=== PATIENT | female | born 1995 ===

== ENCOUNTER 2020-12-20 12:53 | Emergency (ER) | payer OTHER ==
[2020-12-20 13:29] LABS: Urine Blood 3+ (Negative); Urine Glucose Negative (Negative); Urine Protein 1+ (Negative); Urine Specific Gravity 1.015 (1.005-1.030)
[2020-12-20 13:46] LABS: Urine Bacteria <20 /HPF (<20); Urine RBC >50 /HPF (NONE SEEN)
[2020-12-20 13:46] LABS: Urine Specific Gravity/Preg 1.015 (1.005-1.030)
[2020-12-20 13:49] LABS: Absolute Lymphocytes (CBC) 2.5 K/uL (0.7-4.9); Basophils % 0.6 % (0-1.3); Hematocrit 37.4 % (36.0-45.0); Lymphocytes % 23.2 % (15.3-44.8); MPV 8.9 fL (7.6-11.3); RBC Red Blood Cell Count 4.62 M/uL (3.86-4.86)
[2020-12-20 14:10] LABS: BUN Blood Urea Nitrogen 7 mg/dL (7-18); Bicarbonate 27 mmol/L (21-32); Glucose Level 90 mg/dL (74-106); HCG, Quantitative 159 mIU/mL (1-3); Potassium 3.6 mmol/L (3.5-5.1); Sodium Level 138 mmol/L (136-145)
--- NOTE | 2020-12-20 15:33 | RAD REPORT ---
EXAM DESCRIPTION: US - Transvaginal OB - 12/20/2020 3:00 pm CLINICAL HISTORY: VAGINAL BLEEDING, , beta HCG 159 COMPARISON: Abdomen Pelvis W Contrast dated 03/10/2017No comparisonsNo comparisons FINDINGS: Uterus is normal size. No myometrial mass lesion identifiable. Both ovaries are well visua lized with normal blood flow seen in the stroma on Doppler assessment. No adnexal mass. No blood or f luid in the cul de sac. Endometrium is 7 mm in thickness. No gestational sac or sac remnant identifiable. No blood, fluid or other abnormality of the endometrial canal. IMPRESSION: No intrauterine gestational sac or sac remnant is identifiable at this time. No adnexal abnormality to suspect ectopic . Follow-up sonography could be performed if serial beta HCG studies show ongoing and the pat ient remains symptomatic.
--- NOTE | 2020-12-20 16:14 | ER ---
Nurse's Notes [facility] Name: Vanessa Cruz Age: 25 yrs Sex: Female : 1995 Arrival Date: 12/20/2020 Time: 13:00 Bed 19 Private MD: Diagnosis: Threatened Presentation: 12/20 13:06 Chief complaint: Patient states: 8 weeks . Having vaginal bleeding since this ca1 morning, moderate, bright red. Reports lower abdominal and lower back pains. Coronavirus screen: Client denies travel out of the [place] in the last 14 days. At this time, the client does not indicate any symptoms associated with coronavirus-19. Ebola Screen: Patient negative for fever greater than or equal to 101.5 degrees Fahrenheit, and additional compatible Ebola Virus Disease symptoms Patient denies exposure to infectious person. Patient denies travel to an Ebola-affected area in the 21 days before illness onset. No symptoms or risks identified at this time. Initial Sepsis Screen: Does the patient meet any 2 criteria? No. Patient's initial sepsis screen is negative. Does the patient have a suspected source of infection? No. Patient's initial sepsis screen is negative. Risk Assessment: Do you want to hurt yourself or someone else? Patient reports no desire to harm self or others. Onset of symptoms was December 20, 2020. 13:06 Method Of Arrival: Ambulatory ca1 13:06 Acuity: ANN 3 ca1 DIRECTOR RELIGIOUS EDUCATION: 13:08 2, Premature 1, Living 1, LMP 10/21/2020 ca1 13:15 2, Full Term 1, Living 1 pm1 Historical: - Allergies: 13:08 No Known Allergies; ca1 - Home Meds: 13:08 None [Active]; ca1 - PMHx: 13:08 None; ca1 - PSHx: 13:08 None; ca1 - Immunization history:: Client reports receiving the 2nd dose of the Covid vaccine, Client reports receiving the 1st dose of the Covid vaccine, Flu vaccine is not up to date. - Social history:: Smoking status: Patient denies any tobacco usage or history of. Screenin:15 Abuse screen: Denies threats or abuse. Nutritional screening: No deficits noted. rb3 Tuberculosis screening: No symptoms or risk factors identified. Fall Risk None identified. Assessment: 13:15 General: Appears in no apparent distress. comfortable, Behavior is calm, cooperative. rb3 Pain: Complains of pain in right low back and left low back and suprapubic area Pain currently is 5 out of 10 on a pain scale. Neuro: Level of Consciousness is awake, alert, obeys commands, Oriented to person, place, time, situation. Cardiovascular: Patient's skin is warm and dry. Respiratory: Airway is patent Respiratory effort is even, unlabored, Respiratory pattern is regular, symmetrical. GI: No signs and/or symptoms were reported involving the gastrointestinal system. : Reports vaginal bleeding that is bright red, moderate flow, since this morning Has gone through three pads today. 14:09 Reassessment: Pt. was crying when I walked into the room. She is feeling anxious due to rb3 the vaginal bleeding. 15:00 Reassessment: Patient appears in no apparent distress at this time. Patient and/or rb3 family updated on plan of care and expected duration. Pain level reassessed. Patient is alert, oriented x 3, equal unlabored respirations, skin warm/dry/pink. Pt is no longer crying. 15:44 Reassessment: Patient appears in no apparent distress at this time. No changes from rb3 previously documented assessment. 16:26 Reassessment: Patient appears in no apparent distress at this time. Patient and/or rb3 family updated on plan of care and expected duration. Pain level reassessed. Patient is alert, oriented x 3, equal unlabored respirations, skin warm/dry/pink. Vital Signs: 13:06 BP 130 / 85; Pulse 86; Resp 16 S; Temp 98.4; Pulse Ox 100% on R/A; Weight 93.89 kg (R); ca1 Height 5 ft. 3 in. (160.02 cm) (R); Pain 5/10; 13:48 BP 119 / 91; Pulse 84; Resp 16; Pulse Ox 100% on R/A; mh5 14:40 BP 120 / 88; Pulse 93; Resp 15; Pulse Ox 100% ; rb3 15:30 BP 124 / 77; Pulse 91; Resp 16; Pulse Ox 100% ; rb3 16:14 BP 115 / 78; Pulse 98; Resp 17; Pulse Ox 99% ; rb3 13:06 Body Mass Index 36.67 (93.89 kg, 160.02 cm) ca1 ED Course: 13:00 Patient arrived in ED. bp1 13:08 Triage completed. ca1 13:08 Arm band placed on right wrist. ca1 13:09 Anisha Martines, RN is Primary Nurse. rb3 13:10 Nahid Marin NP is PHCP. pm1 13:10 Corby Cardenas MD is Attending Physician. pm1 13:29 Urine collected: clean catch specimen, blood tinged. [facility] 13:44 Urine --Ancillary (enter results) Sent. 5 13:44 ABO/RH typing Sent. 5 13:44 Basic Metabolic Panel Sent. 5 13:44 Abo/rh Typing Sent. 5 13:44 Basic Metabolic Panel Sent. 5 13:44 CBC with Diff Sent. 5 13:45 Patient has correct armband on for positive identification. Placed in gown. Bed in low mh5 position. Call light in reach. Side rails up X 1. Warm blanket given. Pulse ox on. NIBP on. 13:45 Quantitative Hcg Sent. 5 13:46 Initial lab(s) drawn, by nj, sent to lab. Inserted saline lock: 22 gauge in right 5 antecubital area, using aseptic technique. Blood collected. 15:00 US Transvaginal Ob In Process Unspecified. EDMS 16:26 No provider procedures requiring assistance completed. IV discontinued, intact, rb3 bleeding controlled, No redness/swelling at site. Pressure dressing applied. Administered Medications: No medications were administered Outcome: 16:13 Discharge ordered by . pm1 16:26 Discharged to home ambulatory. rb3 16:26 Condition: stable 16:26 Discharge instructions given to patient, Instructed on discharge instructions, follow up and referral plans. Demonstrated understanding of instructions, follow-up care, Prescriptions given X none 16:31 Patient left the ED. rb3 Signatures: Dispatcher [employer] EDMS Nahid Marin, HANK VOLTAGE INSPECTOR pm1 Jailyn Lewis 5 Marcela Robledo RN RN [id number] Cindy Voss RN RN ca1 Nithya Castillo bp1 Anisha Martines, RN RN rb3
--- NOTE | 2020-12-20 16:14 | EDPHYS ---
Physician Documentation [facility] Name: Vanessa Cruz Age: 25 yrs Sex: Female : 1995 Arrival Date: 12/20/2020 Time: 13:00 Bed 19 Private MD: ED Physician Corby Cardenas HPI: 12/20 13:15 This 25 yrs old Female presents to ER via Ambulatory with complaints of Vaginal pm1 Bleeding. 13:15 The patient presents with vaginal bleeding that is moderate, with no clots. Onset: The pm1 symptoms/episode began/occurred today. Modifying factors: The symptoms are alleviated by nothing, the symptoms are aggravated by nothing. Associated signs and symptoms: Pertinent positives: cramping, lower back and lower abdomen, Pertinent negatives: dysuria, fever, nausea, vomiting. Severity of symptoms: in the emergency department the symptoms are unchanged. The patient is sexually active. The patient's method of control includes nothing. The patient has not experienced similar symptoms in the past. The patient has not recently seen a physician, has an appointment scheduled, on Tuesday with her ob. TELECOMMUNICATIONS SPECIALIST: 13:08 2, Premature 1, Living 1, LMP 10/21/2020 ca1 13:15 2, Full Term 1, Living 1 pm1 Historical: - Allergies: 13:08 No Known Allergies; ca1 - Home Meds: 13:08 None [Active]; ca1 - PMHx: 13:08 None; ca1 - PSHx: 13:08 None; ca1 - Immunization history:: Client reports receiving the 2nd dose of the Covid vaccine, Client reports receiving the 1st dose of the Covid vaccine, Flu vaccine is not up to date. - Social history:: Smoking status: Patient denies any tobacco usage or history of. ROS: 13:15 Positive for vaginal bleeding, Negative for urinary symptoms. pm1 13:15 Constitutional: Negative for fever, chills, and weight loss, Cardiovascular: Negative for chest pain, palpitations, and edema, Respiratory: Negative for shortness of breath, cough, wheezing, and pleuritic chest pain. 13:15 MS/Extremity: Negative for injury and deformity, Skin: Negative for injury, rash, and discoloration. 13:15 Abdomen/GI: Positive for abdominal cramps, of the suprapubic area. 13:15 Back: Positive for of the left low back and right low back, cramping. 13:15 All other systems are negative. Exam: 13:15 Constitutional: This is a well developed, well nourished patient who is awake, alert, pm1 and in no acute distress. Head/Face: Normocephalic, atraumatic. 13:15 Skin: Warm, dry with normal turgor. Normal color with no rashes, no lesions, and no evidence of cellulitis. MS/ Extremity: Pulses equal, no cyanosis. Neurovascular intact. Full, normal range of motion. 13:15 Eyes: Exam is negative for acute changes, Periorbital structures: appear normal, Extraocular movements: no acute changes, Conjunctiva: no acute changes, no injection, Sclera: no acute changes, icterus, is not appreciated. 13:15 Cardiovascular: Exam negative for acute changes, Rate: normal, Rhythm: regular, Pulses: no pulse deficits are appreciated. 13:15 Respiratory: Exam negative for acute changes, respiratory distress, shortness of breath. 13:15 Abdomen/GI: Inspection: obese Palpation: abdomen is soft and non-tender, in all quadrants. 13:15 Back: pain, is absent, of the left low back and right low back, normal spinal alignment noted. 13:15 Neuro: Exam negative for acute changes, Orientation: is normal, Motor: is normal, moves all fours, Gait: is steady, at a normal pace, without difficulty. Vital Signs: 13:06 BP 130 / 85; Pulse 86; Resp 16 S; Temp 98.4; Pulse Ox 100% on R/A; Weight 93.89 kg (R); ca1 Height 5 ft. 3 in. (160.02 cm) (R); Pain 5/10; 13:48 BP 119 / 91; Pulse 84; Resp 16; Pulse Ox 100% on R/A; mh5 14:40 BP 120 / 88; Pulse 93; Resp 15; Pulse Ox 100% ; rb3 15:30 BP 124 / 77; Pulse 91; Resp 16; Pulse Ox 100% ; rb3 16:14 BP 115 / 78; Pulse 98; Resp 17; Pulse Ox 99% ; rb3 13:06 Body Mass Index 36.67 (93.89 kg, 160.02 cm) ca1 MDM: 13:10 Patient medically screened. pm1 13:18 Data reviewed: vital signs. Data interpreted: Pulse oximetry: on room air is 100 %. pm1 Interpretation: normal. 16:07 Counseling: I had a detailed discussion with the patient and/or guardian regarding: the pm1 historical points, exam findings, and any diagnostic results supporting the discharge/admit diagnosis, lab results, radiology results, the need for outpatient follow up, an OB/Gyne specialist, 48 hours for repeat labs and ultrasound, to return to the emergency department if symptoms worsen or persist or if there are any questions or concerns that arise at home. 16:07 ED course: Patient has appointment with her OB on Tuesday. Lucy Beck MD in [facility] [place]. 12/20 13:14 Order name: Abo/rh Typing pm1 12/20 13:14 Order name: Basic Metabolic Panel pm12/20 13:14 Order name: CBC with Diff; Complete Time: 13:55 pm1 12/20 13:14 Order name: Quantitative Hcg; Complete Time: 14:28 pm1 12/20 13:14 Order name: Urine Microscopic Only; Complete Time: 13:55 pm12/20 13:15 Order name: ABO/RH typing; Complete Time: 14:53 EDMS 12/20 13:14 Order name: IV Saline Lock; Complete Time: 13:44 pm1 12/20 13:14 Order name: Labs collected and sent; Complete Time: 13:44 pm1 12/20 13:14 Order name: NPO; Complete Time: 13:44 pm12/20 13:14 Order name: US Transvaginal Ob; Complete Time: 15:37 pm1 12/20 13:15 Order name: Basic Metabolic Panel; Complete Time: 14:28 EDMS 12/20 13:28 Order name: Urine Dipstick-Ancillary; Complete Time: 13:31 EDMS 12/20 13:30 Order name: Urine --Ancillary (enter results) 1 12/20 16:16 Order name: ABO/RH no charge; Complete Time: 16:18 EDMS 12/20 13:14 Order name: Urine Dipstick-Ancillary (obtain specimen); Complete Time: 13:28 pm1 12/20 13:14 Order name: Urine Test (obtain specimen); Complete Time: 13:28 pm1 Administered Medications: No medications were administered Disposition: 12/21 07:25 Co-signature as Attending Physician, Corby Cardenas MD I agree with the assessment and tw4 plan of care. Disposition Summary: 12/20/20 16:13 Discharge Ordered Location: Home pm1 Problem: new pm1 Symptoms: have improved pm1 Condition: Stable pm1 Diagnosis - Threatened pm1 Followup: pm1 - With: Emergency Department - When: As needed - Reason: Worsening of condition Followup: pm1 - With: Private Physician - When: 2 days - Reason: Recheck today's complaints, Continuance of care, Repeat Beta-HCG (48 Hours), Re-evaluation by your physician Discharge Instructions: - Discharge Summary Sheet pm1 - Threatened Miscarriage pm1 - Activity Restriction During pm1 Forms: - Medication Reconciliation Form pm1 - Thank You Letter pm1 - Antibiotic Education pm1 - Prescription Opioid Use pm1 Signatures: Dispatcher [employer] EDMS Nahid Marin, PLUMBING DESIGNER PLUMBING DESIGNER pm1 Corby Cardenas MD MD tw4 Cindy Voss RN RN ca1
[2020-12-20 16:54] VITALS: BP 115/78; O2SAT 99
[2020-12-20 16:56] VITALS: TEMP 98.4
== END 2020-12-20 16:31 | disposition home or self-care (01) ==
LOC: ER 12:53
DX: O20.0 Threatened abortion (principal)
CPT/HCPCS: 36415; 76817; 80048; 81003; 81015; 81025; 84702; 85025; 86900; 86901; 99284